=== PATIENT | male | born 1975 | race Caucasian/White ===

== ENCOUNTER 2016-10-26 11:05 | Day surgery (SDC) | payer BC ==
[~2016-10-26 11:05] MED LIST: CEFAZOLIN SODIUM 2 GRAM PREMIX 100 ML IV ONE; CEFAZOLIN SODIUM 2 GRAM PREMIX 100 ML IV PRN; FENTANYL 5 ML ONE; IV START KIT ONE; LACTATED RINGERS 1,000 ML ONE; MIDAZOLAM HCL 1 MG/ML 2ML VIAL ONE
[2016-10-26] MEDS ORDERED: DEXAMETHASONE SOD PHOS 4 MG/1 ML VIAL ONE (12:11)
[2016-10-26] MEDS ORDERED: PROPOFOL 20 ML IV ONE (12:11)
[2016-10-26] MEDS ORDERED: ONDANSETRON 4 MG/2ML 2 ML VIAL ONE (12:11)
[2016-10-26] MEDS ORDERED: LIDOCAINE 2% (PRES FREE) 5 ML VIAL ONE (12:11)
[2016-10-26] MEDS ORDERED: DIPHENHYDRAMINE HCL 50 MG/1 ML VIAL ONE (12:11)
[2016-10-26] MEDS ORDERED: ONDANSETRON 4 MG/2ML 2 ML VIAL IV PRN ×2 (12:12→13:48)
[2016-10-26] MEDS ORDERED: HYDROMORPHONE HCL 1 MG/ML SYRINGE IV PRN (12:12)
[2016-10-26] MEDS ORDERED: SODIUM CHLORIDE 0.9% FLUSH 10 ML ONE (12:12)
[2016-10-26] MEDS ORDERED: ATROPINE SULFATE 0.4 MG/1 ML VIAL IV PRN (12:12)
[2016-10-26] MEDS ORDERED: CEFAZOLIN SODIUM 1,000 MG VIAL ONE (12:12)
[2016-10-26] MEDS ORDERED: NALOXONE HCL 0.4 MG/ML VIAL IV PRN (12:12)
[2016-10-26] MEDS ORDERED: PROMETHAZINE HCL 25 MG/ML VIAL IM PRN (12:12)
[2016-10-26] MEDS ORDERED: FENTANYL 100 MCG/2 ML VIAL IV PRN (12:12)
[2016-10-26] MEDS ORDERED: BUPIVACAINE 0.5% (PRES FREE) 30 ML VIAL ONE (12:13)
[2016-10-26] MEDS ORDERED: LACTATED RINGERS 1,000 ML IV SCH (12:15)
[2016-10-26] MEDS ORDERED: KETOROLAC TROMETHAMINE 30 MG/ML 1 ML VIAL ONE (12:47)
[2016-10-26] MEDS ORDERED: LACTATED RINGERS 1,000 ML ONE (13:33)
[2016-10-26] MEDS ORDERED: KETOROLAC TROMETHAMINE 30 MG/ML 1 ML VIAL IV PRN (13:48)
[2016-10-26] MEDS ORDERED: MORPHINE SULFATE 2 MG/ML SYRINGE IV PRN (13:48)
[2016-10-26] MEDS ORDERED: OXYCODONE HCL 5 MG TABLET ONE ×2 (14:19→16:03)
[2016-10-26] MEDS: OXYCODONE HCL 5 MG TABLET PO PRN ×2 (14:20→16:06)
--- NOTE | 2016-10-26 18:08 | OP ---
NONI KRAFT [id number] DATE OF OPERATION: October 26, 2016 PREOPERATIVE DIAGNOSIS: Right inguinal hernia. POSTOPERATIVE DIAGNOSIS: Right inguinal hernia. PROCEDURE: RIGHT INGUINAL HERNIA REPAIR WITH MESH PLUG AND PATCH. SURGEON: Calderon Denise M.D. MAIL SUPERINTENDENT: Cas Shaw ANESTHESIA: General anesthesia by Beau Traore C.R.N.A., LMA general. INDICATIONS: This is a 41-year-old male who presents for elective repair of a right inguinal hernia. DESCRIPTION: With informed consent he was taken to the operating room. He was laid supine on the operating room table. General anesthesia was administered. The right groin was prepped and draped in the usual fashion. Some Marcaine was infiltrated in the skin and subcutaneous tissue. Incision was made. Electrocautery was used to divide the subcutaneous fat and Sylvester's fascia. We dissected down to the external oblique. This was opened with a knife and Metzenbaum scissors in a fiber splitting technique. The cord structures were encircled at the level of the pubic tubercle with a [place] drain. The floor looked intact. There was a large indirect sac present. This was dissected free. I did open the sac to determine its extent. I excised it free down to the level of the internal ring. At that point, it was ligated with #0 Vicryl tie and most of the sac was excised. There was a small defect around where this was at in the superior medial aspect of the cord structures. I did put a medium mesh plug into that area. It was secured at multiple points with some #2-0 Vicryl. A flat piece of mesh was placed across the floor of the canal. The medial aspect overlapped the pubic tubercle. A list was cut laterally. This was placed around the cord structures and secured with Vicryl. It was placed up beneath the external oblique. The wound was irrigated. We had adequate hemostasis. The external obliques were reapproximated with running #2-0 Vicryl. Some additional local anesthetic was administered below the external oblique. Subcutaneous tissue was brought together with #3-0 Vicryl and the skin was closed with a running subcuticular #4-0 Monocryl. Mastisol and SteriStrips were placed. Sterile dressings were applied. He tolerated the procedure and was taken to the recovery room in stable condition. Note was made that needle, instrument and lap counts were reported as correct at time of closure. Cc: Cuate Coreas M.D.
== END 2016-10-26 16:30 | disposition home or self-care (01) ==
LOC: SDC 11:05
PROVIDERS: ATTEND Surgery
PROC: 0YU50JZ Supplement Right Inguinal Region with Synthetic Substitute, Open Approach (ICD-10-PCS; principal; 2016-10-26)
DX: K40.90 Unilateral inguinal hernia, without obstruction or gangrene, not specified as recurrent (principal); K64.8 Other hemorrhoids; Z86.010 Personal history of colon polyps
CPT/HCPCS: 49505; J0690 ×2; J1200; J3010; J1100; A9270 ×2; J1885; J2250; J2405; J7120 ×2